=== PATIENT | female | born 1945 | race Caucasian/White ===

== ENCOUNTER 2021-07-07 08:27 | Outpatient (CLI) | payer MEDICARE | END 2021-07-07 08:28 | disposition home or self-care (01) | LOC: MADCT 08:27 | PROVIDERS: ATTEND Physician Assistant | DX: R30.0 Dysuria (principal); M54.9 Dorsalgia, unspecified; N20.0 Calculus of kidney; E27.8 Other specified disorders of adrenal gland | CPT/HCPCS: 74176 ==